=== PATIENT | male | born 1945 | race Caucasian/White ===

== ENCOUNTER → 2018-03-14 | Outpatient (CLI) | payer OTHER ==
[~2018-03-14] MED LIST: CALC667T5 PO; CARV25TA77 PO; EMLA30C TP; EZET10 PO; FOLI1TAB61 PO; HYDR-4154 PO; INSLAN SQ; LEVO50 PO; LIDOCAINE 1%-EPI 1:100,000 20 ML VIAL IJ ONE; LIDOCAINE HCL MPF 1% 5ML VIAL ONE; LISI-613 PO; ONDA4TAB9 PO; SODIUM BICARB 50MEQ 50ML VIAL ONE; TYL3 PO
[2018-03-14 08:43] LABS: INR 0.99 (0.85-1.15); PARTIAL THROMBOPLASTIN TIME 26.8 SEC (26.3-35.5); PROTHROMBIN TIME 10.4 SEC (9.6-11.6)
== END | disposition home or self-care (01) ==
LOC: RAH 07:45
PROVIDERS: ATTEND Family Medicine
DX: N63.21 Unspecified lump in the left breast, upper outer quadrant (principal); N64.89 Other specified disorders of breast; Z98.49 Cataract extraction status, unspecified eye; Z98.890 Other specified postprocedural states; E11.9 Type 2 diabetes mellitus without complications; I10 Essential (primary) hypertension; Z79.899 Other long term (current) drug therapy
CPT/HCPCS: 19083; 36415; 85610; 85730; 88173; 88305 ×2; A4215; J3490 ×3; 76942

== ENCOUNTER 2021-06-20 13:07 | Inpatient (IN) | payer MEDICARE, OTHER ==
[~2021-06-20] VITALS: Ht 167.6 cm; Wt 60.5 kg
[2021-06-20] VITALS (7 sets, daily range): BP systolic 101–134; BP diastolic 51–63
[~2021-06-20 13:07] MED LIST changes: -CALC667T5 PO; -CARV25TA77 PO; +CETI10TA57 PO; -EMLA30C TP; -EZET10 PO; +FAMO20TA8 PO; +FOLI0.8T22 PO; -FOLI1TAB61 PO; -INSLAN SQ; -LEVO50 PO; +LEVO50CA4 PO; -LIDOCAINE 1%-EPI 1:100,000 20 ML VIAL IJ ONE; -LIDOCAINE HCL MPF 1% 5ML VIAL ONE; -LISI-613 PO; -ONDA4TAB9 PO; +SEVE800T7 PO; -SODIUM BICARB 50MEQ 50ML VIAL ONE; +TAMS-1 PO; -TYL3 PO
[2021-06-20 14:29] LABS: BASOPHILS % (AUTO) 0.4 % (0.0-5.0); EOSINOPHILS % (AUTO) 2.3 % (0.0-8.0); LYMPHOCYTES % (AUTO) 5.7 % (21.0-51.0); MEAN CORPUSCULAR HEMOGLOBIN 29.5 pg (27.0-33.0); MEAN CORPUSCULAR HGB CONC 32.1 g/dL (32.0-36.0); MEAN CORPUSCULAR VOLUME 91.8 fL (79-99); MONOCYTES % (AUTO) 5.5 % (3.0-13.0); NEUTROPHILS % (AUTO) 85.6 % (40.0-77.0); PLATELET COUNT (AUTO) 239 K/uL (130-400); RED BLOOD CELL COUNT(AUTO) 3.05 MIL/uL (4.50-6.20); RED CELL DISTRIBUTION WIDTH 14.8 % (11.0-15.5); WHITE BLOOD COUNT (AUTO) 10.2 K/uL (4.8-10.8)
[2021-06-20 14:52] LABS: INR 1.99 (0.85-1.15); PROTHROMBIN TIME 20.4 SEC (9.6-11.6)
[2021-06-20 15:12] LABS: ALBUMIN 2.5 g/dL (3.5-5.0); BILIRUBIN,TOTAL 0.4 mg/dL (0.2-1.0); POTASSIUM 4.6 mmol/L (3.5-5.1)
[2021-06-20 15:26] LABS: CREATININE 9.5 mg/dL (0.5-1.5)
[2021-06-20 15:42] LABS: MAGNESIUM 2.4 mg/dL (1.80-2.40); PHOSPHORUS 3.6 mg/dL (2.5-4.9)
[2021-06-20] MEDS: SEVELAMER HCL 800 MG TABLET PO SCH (17:08)
[2021-06-20] MEDS ORDERED: EPOETIN ALFA-EPBX (ESRD) 10,000 UNIT/ML VIAL SQ SCH (18:16)
[2021-06-20] MEDS: HYDRALAZINE 25MG TABLET PO SCH (21:40)
[2021-06-20] MEDS: TAMSULOSIN HCL 0.4 MG CAP.ER.24H PO SCH (21:40)
[2021-06-21] VITALS (21 sets, daily range): BP systolic 99–143; BP diastolic 50–68
[2021-06-21 04:27] LABS: BASOPHILS % (AUTO) 0.3 % (0.0-5.0); HEMATOCRIT 26.4 % (42-54); LYMPHOCYTES % (AUTO) 8.6 % (21.0-51.0); MEAN CORPUSCULAR HGB CONC 32.2 g/dL (32.0-36.0); MEAN CORPUSCULAR VOLUME 90.1 fL (79-99); MONOCYTES % (AUTO) 7.7 % (3.0-13.0); NEUTROPHILS % (AUTO) 76.7 % (40.0-77.0); PLATELET COUNT (AUTO) 237 K/uL (130-400); RED BLOOD CELL COUNT(AUTO) 2.93 MIL/uL (4.50-6.20); RED CELL DISTRIBUTION WIDTH 14.8 % (11.0-15.5); WHITE BLOOD COUNT (AUTO) 7.6 K/uL (4.8-10.8)
[2021-06-21 04:52] LABS: PHOSPHORUS 3.7 mg/dL (2.5-4.9); POTASSIUM 4.2 mmol/L (3.5-5.1)
[2021-06-21] MEDS: LEVOTHYROXINE 50 MCG TABLET PO SCH (07:52)
[2021-06-21] MEDS: TAMSULOSIN HCL 0.4 MG CAP.ER.24H PO SCH ×2 (07:52→22:07)
[2021-06-21] MEDS: SEVELAMER HCL 800 MG TABLET PO SCH ×3 (07:53→17:37)
[2021-06-21] MEDS: HYDRALAZINE 25MG TABLET PO SCH (07:53)
[2021-06-21] MEDS: FAMOTIDINE 20MG TAB PO SCH (07:53)
[2021-06-21] MEDS: Vitamin B Complex/Vit C/Folic Acid PO SCH (07:53)
[2021-06-21] MEDS ORDERED: EPOETIN ALFA-EPBX (ESRD) 10,000 UNIT/ML VIAL SQ SCH (15:00)
[2021-06-22] VITALS: BP 134/64
[2021-06-22] MEDS: HYDRALAZINE 25MG TABLET PO SCH ×3 (00:32→20:40)
[2021-06-22 04:00] VITALS: BP 123/59
[2021-06-22 05:23] LABS: HEMATOCRIT 29.8 % (42-54); MEAN CORPUSCULAR HEMOGLOBIN 28.3 pg (27.0-33.0); MEAN CORPUSCULAR HGB CONC 30.5 g/dL (32.0-36.0); MEAN CORPUSCULAR VOLUME 92.8 fL (79-99); PLATELET COUNT (AUTO) 257 K/uL (130-400); RED BLOOD CELL COUNT(AUTO) 3.21 MIL/uL (4.50-6.20); RED CELL DISTRIBUTION WIDTH 14.8 % (11.0-15.5); WHITE BLOOD COUNT (AUTO) 7.3 K/uL (4.8-10.8)
[2021-06-22 05:44] LABS: CREATININE 5.9 mg/dL (0.5-1.5); POTASSIUM 3.8 mmol/L (3.5-5.1)
[2021-06-22 05:56] LABS: BAND NEUTROPHILS % (MANUAL) 4 % (0-2); EOSINOPHILS % (MANUAL) 6 % (1-6); LYMPHOCYTES % (MANUAL) 2 % (22-44); MAN.DIFF COMMENT-IMPRESSION MANUAL DIFFERENTIAL; MONOCYTES % (MANUAL) 6 % (2-9); PLATELET MORPHOLOGY COMMENT ADEQUATE; SEGMENTED NEUTROPHILS % 82 % (40-70)
[2021-06-22] MEDS: FAMOTIDINE 20MG TAB PO SCH (07:54)
[2021-06-22] MEDS: SEVELAMER HCL 800 MG TABLET PO SCH ×3 (07:54→16:57)
[2021-06-22] MEDS: TAMSULOSIN HCL 0.4 MG CAP.ER.24H PO SCH ×2 (07:54→20:40)
[2021-06-22] MEDS: LEVOTHYROXINE 50 MCG TABLET PO SCH (07:54)
[2021-06-22] MEDS: Vitamin B Complex/Vit C/Folic Acid PO SCH (07:54)
[2021-06-22 08:00] VITALS: BP 98/52
[2021-06-22 12:00] VITALS: BP 136/47
[2021-06-22 16:00] VITALS: BP 108/53
[2021-06-22 20:00] VITALS: BP 130/64
[2021-06-22] MEDS: GABAPENTIN 100 MG CAPSULE PO SCH (20:41)
[2021-06-22] MEDS: ATORVASTATIN 40 MG TABLET PO SCH (20:41)
[2021-06-23] VITALS (19 sets, daily range): BP systolic 108–149; BP diastolic 46–83
[2021-06-23] MEDS ORDERED: ACETAMINOPHEN 325 MG TAB PO PRN (02:00)
[2021-06-23] MEDS: TRAMADOL HCL 50 MG TABLET PO PRN ×3 (02:02→20:48)
[2021-06-23 04:49] LABS: BASOPHILS % (AUTO) 0.6 % (0.0-5.0); EOSINOPHILS % (AUTO) 5.4 % (0.0-8.0); HEMATOCRIT 27.6 % (42-54); LYMPHOCYTES % (AUTO) 9.5 % (21.0-51.0); MEAN CORPUSCULAR HEMOGLOBIN 28.8 pg (27.0-33.0); MEAN CORPUSCULAR HGB CONC 31.9 g/dL (32.0-36.0); MEAN CORPUSCULAR VOLUME 90.2 fL (79-99); MONOCYTES % (AUTO) 11.1 % (3.0-13.0); NEUTROPHILS % (AUTO) 72.8 % (40.0-77.0); PLATELET COUNT (AUTO) 253 K/uL (130-400); RED BLOOD CELL COUNT(AUTO) 3.06 MIL/uL (4.50-6.20); RED CELL DISTRIBUTION WIDTH 14.9 % (11.0-15.5); WHITE BLOOD COUNT (AUTO) 7.2 K/uL (4.8-10.8)
[2021-06-23 05:02] LABS: CREATININE 7.4 mg/dL (0.5-1.5); POTASSIUM 4.1 mmol/L (3.5-5.1)
[2021-06-23] MEDS: LEVOTHYROXINE 50 MCG TABLET PO SCH (05:55)
[2021-06-23] MEDS: Vitamin B Complex/Vit C/Folic Acid PO SCH (08:52)
[2021-06-23] MEDS: HYDRALAZINE 25MG TABLET PO SCH ×2 (08:53→20:47)
[2021-06-23] MEDS: ASPIRIN 81 MG EC TAB PO SCH (08:54)
[2021-06-23] MEDS: TAMSULOSIN HCL 0.4 MG CAP.ER.24H PO SCH ×2 (08:54→20:47)
[2021-06-23] MEDS: GABAPENTIN 100 MG CAPSULE PO SCH ×3 (08:54→20:48)
[2021-06-23] MEDS: SEVELAMER HCL 800 MG TABLET PO SCH ×3 (08:54→17:15)
[2021-06-23] MEDS: CLOPIDOGREL 75MG TAB PO SCH (08:54)
[2021-06-23] MEDS ORDERED: EPOETIN ALFA-EPBX (ESRD) 10,000 UNIT/ML VIAL SQ SCH (09:00)
[2021-06-23] MEDS: FAMOTIDINE 20MG TAB PO SCH (09:00)
[2021-06-23] MEDS: ATORVASTATIN 40 MG TABLET PO SCH (20:48)
[2021-06-24] VITALS: BP 127/62
[2021-06-24 04:00] VITALS: BP 127/67
[2021-06-24 05:24] LABS: BASOPHILS % (AUTO) 0.8 % (0.0-5.0); EOSINOPHILS % (AUTO) 6.3 % (0.0-8.0); HEMATOCRIT 30.3 % (42-54); LYMPHOCYTES % (AUTO) 12.8 % (21.0-51.0); MEAN CORPUSCULAR HEMOGLOBIN 28.7 pg (27.0-33.0); MEAN CORPUSCULAR HGB CONC 30.4 g/dL (32.0-36.0); MEAN CORPUSCULAR VOLUME 94.4 fL (79-99); MONOCYTES % (AUTO) 9.7 % (3.0-13.0); NEUTROPHILS % (AUTO) 69.8 % (40.0-77.0); PLATELET COUNT (AUTO) 272 K/uL (130-400); RED BLOOD CELL COUNT(AUTO) 3.21 MIL/uL (4.50-6.20); RED CELL DISTRIBUTION WIDTH 14.7 % (11.0-15.5); WHITE BLOOD COUNT (AUTO) 6.6 K/uL (4.8-10.8)
[2021-06-24 05:35] LABS: CREATININE 5.7 mg/dL (0.5-1.5); POTASSIUM 3.8 mmol/L (3.5-5.1)
[2021-06-24] MEDS: LEVOTHYROXINE 50 MCG TABLET PO SCH (06:09)
[2021-06-24 07:45] VITALS: BP 133/61
[2021-06-24] MEDS: HYDRALAZINE 25MG TABLET PO SCH (10:05)
[2021-06-24] MEDS: CLOPIDOGREL 75MG TAB PO SCH (10:05)
[2021-06-24] MEDS: Vitamin B Complex/Vit C/Folic Acid PO SCH (10:05)
[2021-06-24] MEDS: FAMOTIDINE 20MG TAB PO SCH (10:05)
[2021-06-24] MEDS: GABAPENTIN 100 MG CAPSULE PO SCH ×2 (10:05→14:45)
[2021-06-24] MEDS: TAMSULOSIN HCL 0.4 MG CAP.ER.24H PO SCH (10:05)
[2021-06-24] MEDS: ASPIRIN 81 MG EC TAB PO SCH (10:05)
[2021-06-24] MEDS: SEVELAMER HCL 800 MG TABLET PO SCH ×2 (10:09→12:27)
[2021-06-24] MEDS: TRAMADOL HCL 50 MG TABLET PO PRN (11:11)
[2021-06-24 11:45] VITALS: BP 129/62
[2021-06-24] MEDS ORDERED: ATOR40TA69 PO (14:45)
[2021-06-24] MEDS ORDERED: ACET-2247 PO (14:45)
[2021-06-24] MEDS ORDERED: GABA100C PO (14:45)
[2021-06-24] MEDS ORDERED: CLOP75TA14 PO (14:45)
[2021-06-24] MEDS ORDERED: AEC81 PO (14:45)
[2021-06-24] MEDS ORDERED: LACT PO (14:49)
[2021-06-24] MEDS ORDERED: LACTULOSE 20 GM/30 ML UDCUP PO ONE (15:30)
[2021-06-24 15:35] VITALS: BP 130/70
== END 2021-06-24 16:52 | DRG 640 ==
LOC: EDH 13:07 → EDHIP 17:02 → 3AH 21:56
PROVIDERS: ADMIT Internal Medicine Nephrology; ATTEND Internal Medicine Nephrology
PROC: 5A1D70Z Performance of Urinary Filtration, Intermittent, Less than 6 Hours Per Day (ICD-10-PCS; principal; 2021-06-20)
PROC: 5A1D70Z Performance of Urinary Filtration, Intermittent, Less than 6 Hours Per Day (ICD-10-PCS; 2021-06-21)
PROC: 5A1D70Z Performance of Urinary Filtration, Intermittent, Less than 6 Hours Per Day (ICD-10-PCS; 2021-06-23)
DX: E87.70 Fluid overload, unspecified (principal); N18.6 End stage renal disease; J96.90 Respiratory failure, unspecified, unspecified whether with hypoxia or hypercapnia; I12.0 Hypertensive chronic kidney disease with stage 5 chronic kidney disease or end stage renal disease; D64.9 Anemia, unspecified; E11.22 Type 2 diabetes mellitus with diabetic chronic kidney disease; E87.5 Hyperkalemia; E78.00 Pure hypercholesterolemia, unspecified; I25.10 Atherosclerotic heart disease of native coronary artery without angina pectoris; R77.8 Other specified abnormalities of plasma proteins; E11.51 Type 2 diabetes mellitus with diabetic peripheral angiopathy without gangrene; K59.00 Constipation, unspecified; Z99.2 Dependence on renal dialysis; Z91.15 Patient's noncompliance with renal dialysis
CPT/HCPCS: 36415; 71045; 80048; 80053; 82550; 82948; 83735; 83874; 83880; 84100; 84484; 85025; 85610; 86704; 86706; 87340; 90935; 93005; 97039; G0378